=== PATIENT | male | born 2000 | race Caucasian/White ===

== ENCOUNTER 2025-06-16 00:48 | Emergency (ER) | payer BC, SELFPAY ==
[2025-06-16 00:59] VITALS: BP 136/86; PULSE 86; RESP 18; TEMP 36.8; O2SAT 100
[2025-06-16] MEDS: CEPHALEXIN 500 MG CAPSULE PO (01:50)
--- NOTE | 2025-06-16 02:00 | ED_ITS ---
HPI - Skin/Abscess/Foreign Bdy General Chief complaint: Skin/Abscess/Foreign Body Stated complaint: possible spider bite Time Seen by Provider: 06/16/25 01:15 History of Present Illness HPI narrative: Patient is a 24-year-old male who presents to the ER with complaints of a spider bite to his right flank. He reports he 1st noticed the spot on Friday, 3 days ago. Patient reports he called his teledoc service on Friday, prescribed him doxycycline. He reports he has taken 4 doses of doxycycline and the site looks more red and swollen. Patient reports the day he was diagnosed he had flu-like symptoms, but those have resolved. He denies any red streaks, fevers, drainage from the site, or palpable abscess. Related Data Allergies Allergy/AdvReac Type Severity Reaction Status Date / Time amoxicillin (From Augmentin) AdvReac Intermediate Rash Verified 06/16/25 01:31 clavulanic acid (From AdvReac Intermediate Rash Verified 06/16/25 01:31 Augmentin) Review of Systems Review of Systems: All systems reviewed & are unremarkable except as noted in HPI and below Exam Narrative: GENERAL: Well appearing, well-nourished, non-toxic, in no acute distress. HEAD: Normocephalic, atraumatic. NECK: Supple. No adenopathy, no masses. RESPIRATORY: Airway patent, respirations nonlabored. Clear to auscultation bilaterally, no rales, rhonchi, wheezing. CARDIOVASCULAR: Regular rate and rhythm without murmurs, rubs, or gallops. Peripheral pulses 2+ and equal bilaterally. ABDOMINAL: Soft, nontender, nondistended, no hepatosplenomegaly. Normoactive BS. MUSCULOSKELETAL: Moves all extremities. Strength/ROM intact without gross deformities. SKIN: Warm, dry, normal color. Right flank golf ball size reddened area without induration or drainage. NEURO: A&O X3. Speech clear. Cranial nerves II-XII intact. No ataxic movements. PSYCHIATRIC: Appropriate mood and affect. Normal interaction. Course Vital Signs Vital signs: Vital Signs Temperature 36.8 C 06/16/25 00:59 Pulse Rate 86 06/16/25 00:59 Respiratory Rate 18 06/16/25 00:59 Blood Pressure 136/86 06/16/25 00:59 Pulse Oximetry 100 06/16/25 00:59 Oxygen Delivery Room Air 08/28/25 00:59 Temperature 36.8 C 06/16/25 00:59 Pulse Rate 86 06/16/25 00:59 Respiratory Rate 18 06/16/25 00:59 Blood Pressure 136/86 06/16/25 00:59 Pulse Oximetry 100 06/16/25 00:59 Oxygen Delivery Room Air 06/16/25 00:59 MDM - Skin/Abscess/Foreign Bdy MDM Narrative Medical decision making narrative: Patient is a 24-year-old male who presents to the ER with complaints of a spider bite to his right flank. He reports he 1st noticed the spot on Friday, 3 days ago. Patient reports he called his tele-doc service on Friday, prescribed him doxycycline. He reports he has taken 4 doses of doxycycline and the site looks more red and swollen. Patient reports the day he was diagnosed he had flu-like symptoms, but those have resolved. He denies any red streaks, fevers, drainage from the site, or palpable abscess. Patient Education/Shared MDM: Patient looks very well upon examination. He will be given a dose of Keflex, Zyrtec, and Tdap immunization. Patient strongly advised to maintain hydration status upon discharge and follow-up with his PCP for a wound re-check. He will be discharged home with a prescription for Keflex and Zyrtec. Strict return precautions provided. Patient verbalized understanding and is in agreement with plan. Vital signs stable at time of discharge. All questions answered. Differential Diagnosis Differential diagnosis: Likely abscess of skin or subcutaneous tissue, urticaria, cellulitis, insect bites and contact dermatitis Discharge Plan Discharge Clinical Impression: Cellulitis, Insect bites Patient Disposition: Home Condition: Stable Instructions: Antibiotic Form, Cellulitis (ED), Insect Bite or Sting (ED) Additional Instructions: Please return to the ER with any worsening symptoms. Follow-up with primary care provider to ensure wound healing. Take all medications as prescribed. C omplete your full dose of antibiotics. Patient Language: Welsh Prescriptions: New cephalexin 500 mg capsule 500 mg PO Q8H Qty: 30 0RF cetirizine [Zyrtec] 10 mg tablet,chewable 10 mg PO DAILY Qty: 30 0RF Follow-up/Referrals: UNKNOWN,DOCTOR [Primary Care Provider] Kate Metzger DO [Physician, Family Practice] Referral Note: primary care provider Stand Alone Forms: Work/School Release IP Time of Disposition: 02:24
[2025-06-16] MEDS: TETANUS,DIPHTHERIA,AC PERTUSSIS ADULT (0.5 ML) BOOSTRIX IM (02:28)
[2025-06-16] MEDS: LORATADINE 10 MG TABLET PO (02:29)
== END 2025-06-16 02:34 | disposition home or self-care (01) ==
PROVIDERS: Emergency Provider Registered Nurse
DX: L03.311 Cellulitis of abdominal wall (principal); T63.301A Toxic effect of unspecified spider venom, accidental (unintentional), initial encounter; Z23 Encounter for immunization
CPT/HCPCS: 90471; 90715; 99283; A9270